=== PATIENT | male | born 1935 | race Two or more races ===

== ENCOUNTER 2019-04-22 19:12 | Inpatient (IN) | payer MEDICARE, OTHER ==
[~2019-04-22] VITALS: Ht 170.2 cm; Wt 75.7 kg
--- NOTE | 2019-04-22 19:12 | NUR ---
ED Nurse Note: Patient alona RA [id number] from home c/o abdominal pain for 5 days. ao3 follows command. nad. vss. family member at bedside
--- NOTE | 2019-04-22 19:25 | NUR ---
ED Nurse Note: iv access established. blood and urine collected; sent down to lab.
[2019-04-22] MEDS ORDERED: Isovue-300 100ml vial INJ PRN (19:30)
[2019-04-22] MEDS ORDERED: Morphine Sulfate 4mg/ml Inj (IV USE ONLY) IVP ONE (19:30)
[2019-04-22 20:08] LABS: HEMATOCRIT 51.5 % (42.0-52.0); HEMOGLOBIN 16.3 G/DL (14.2-18.0); MEAN CORPUSCULAR VOLUME 87 FL (80-99); PLATELET COUNT 247 K/UL (150-450); RED BLOOD COUNT 5.93 M/UL (4.70-6.10); WHITE BLOOD COUNT 12.3 K/UL (4.8-10.8)
[2019-04-22 20:09] LABS: LYMPHOCYTES % (AUTO) 10.2 % (20.0-45.0); MONOCYTES % (AUTO) 4.6 % (1.0-10.0); NEUTROPHILS % (AUTO) 85.1 % (45.0-75.0)
[2019-04-22 20:10] LABS: BASOPHILS % (AUTO) 0.1 % (0.0-2.0); EOSINOPHILS % (AUTO) 0.1 % (0.0-3.0); RED CELL DISTRIBUTION WIDTH 12.6 % (11.6-14.8)
[2019-04-22 20:16] VITALS: BP 100/62
[2019-04-22 20:16] LABS: ANION GAP 13 mmol/L (5-15); APPEARANCE,URINE SLIGHTLY CLOUDY; BILIRUBIN, URINE 1+ (NEGATIVE); BLOOD UREA NITROGEN 82 mg/dL (7-18); CALCIUM 10.1 MG/DL (8.5-10.1); CARBON DIOXIDE 21 MMOL/L (21-32); CHLORIDE 104 MMOL/L (98-107); COLOR,URINE BROWN; CREATININE 4.3 MG/DL (0.55-1.30); GLUCOSE, URINE (UA) NEGATIVE (NEGATIVE); INR 1.2 (0.9-1.1); KETONES,URINE 1+ (NEGATIVE); LEUKOCYTE ESTERASE ,URINE 1+ (NEGATIVE); NITRITE,URINE NEGATIVE (NEGATIVE); PH,URINE 5 (4.5-8.0); POTASSIUM 4.9 MMOL/L (3.5-5.1); PROTEIN,URINE 2+ (NEGATIVE); SODIUM 138 MMOL/L (136-145); UROBILINOGEN,URINE 4 MG/DL (0.0-1.0)
--- NOTE | 2019-04-22 20:17 | Diagnostic Imaging Report ---
EXAM: XR Chest, 1 View CLINICAL HISTORY: Shortness of breath TECHNIQUE: Frontal view of the chest. COMPARISON: No relevant prior studies available. FINDINGS: Lungs: Bibasilar opacities, right greater than left, likely an inflammatory or infectious process. Pleural space: Unremarkable. No pneumothorax. Heart: Unremarkable. No cardiomegaly. Mediastinum: Unremarkable. Bones/joints: Unremarkable. IMPRESSION: Bibasilar opacities, right greater than left, likely an inflammatory or infectious process.
[2019-04-22 20:33] LABS: ALANINE AMINOTRANSFERASE 17 U/L (12-78); ALBUMIN 3.7 G/DL (3.4-5.0); ALBUMIN/GLOBULIN RATIO 0.8 (1.0-2.7); ALKALINE PHOSPHATASE 56 U/L (46-116); ASPARTATE AMINO TRANSFERASE 11 U/L (15-37); BILIRUBIN,TOTAL 1.1 MG/DL (0.2-1.0)
[2019-04-22 20:35] LABS: BILIRUBIN,DIRECT 0.4 MG/DL (0.0-0.3)
--- NOTE | 2019-04-22 20:59 | Diagnostic Imaging Report ---
EXAM: CT Abdomen and Pelvis With Intravenous Contrast CLINICAL HISTORY: PAIN TECHNIQUE: Axial computed tomography images of the abdomen and pelvis with intravenous contrast. CTDI is 0.15, 11.12 mGy and DLP is 615 mGy-cm. One or more of the following dose reduction techniques were used: automated exposure control, adjustment of the mA and/or kV according to patient size, use of iterative reconstruction technique. COMPARISON: No relevant prior studies available. FINDINGS: Lung bases: Reticular and groundglass opacities within the lower lungs which may be inflammatory or infectious. Mediastinum: Moderate-sized hiatal hernia. ABDOMEN: Liver: Sub-centimeters hypodensity within left hepatic lobe, which is nonspecific. Gallbladder and bile ducts: Gallbladder is distended with gallstones. No CT evidence of acute cholecystitis. Pancreas: Unremarkable. Spleen: Unremarkable. Adrenals: Unremarkable. Kidneys and ureters: Unremarkable. Stomach and bowel: Small bowel obstruction with a transition point in a right inguinal hernia. Small amount of fluid within the hernia sac. No pneumatosis or free air. Correlate clinically to exclude incarceration. PELVIS: Appendix: Appendix is unremarkable. Bladder: Unremarkable. Reproductive: Prostate gland is enlarged. ABDOMEN and PELVIS: Intraperitoneal space: See above. Bones/joints: No acute fracture. No dislocation. Soft tissues: See above. Vasculature: Vascular calcifications. No abdominal aortic aneurysm. Lymph nodes: Unremarkable. IMPRESSION: 1. Small bowel obstruction with a transition point in a right inguinal hernia. Small amount of fluid within the hernia sac. No pneumatosis or free air. Correlate clinically to exclude incarceration. 2. Reticular and groundglass opacities within the lower lungs which may be inflammatory or infectious. 3. Gallbladder is distended with gallstones. No CT evidence of acute cholecystitis.
[2019-04-22 21:00] VITALS: BP 80/50
--- NOTE | 2019-04-22 21:00 | NUR ---
ED Nurse Note: lactic reflex drawn; sent down to lab.
--- NOTE | 2019-04-22 21:07 | Emergency Room Report ---
History of Present Illness General Chief Complaint: Abdominal Pain Source: EMS Present Illness HPI 83-year-old male history of hypertension, hyperlipidemia, heart disease presents with lower abdominal pain x3 days, no aggravating or relieving factors no fever no chills, patient endorses a sharp achy pain moderate in severity Allergies: Coded Allergies: No Known Allergies (Unverified , 04/22/19) Patient History Past Medical History: see triage record Reviewed Nursing Documentation: PMH: Agreed; PSxH: Agreed Nursing Documentation-PMH Past Medical History: No History, Except For Hx Hypertension: Yes Review of Systems Constitutional: Denies: chills, fever Eye: Denies: blurred vision, double vision ENT: Denies: throat pain, nasal discharge Respiratory: Denies: cough, shortness of breath Cardiovascular: Denies: chest pain, palpitations Gastrointestinal: Reports: abdominal pain, nausea, vomiting; Denies: diarrhea Genitourinary: Denies: dysuria, pain Musculoskeletal: Denies: back pain, muscle pain Skin: Denies: rash, lesions Neurological: Denies: headache, focal weakness Hematologic/Lymphatic: Denies: easy bleeding, easy bruising All Other Systems: negative except mentioned in HPI Physical Exam Vital Signs Date Time Temp Pulse Resp B/P (MAP) Pulse Ox O2 Delivery O2 Flow Rate FiO2 04/22/19 19:08 97.9 85 18 100/62 (75) 96 Room Air Sp02 EP Interpretation: reviewed, normal General Appearance: well appearing, alert, mild distress Head: normocephalic, atraumatic Eyes: bilateral eye PERRL, bilateral eye EOMI ENT: uvula midline, moist mucus membranes Neck: supple, thyroid normal, supple/symm/no masses Respiratory: lungs clear, no respiratory distress, no retraction, no accessory muscle use Cardiovascular #1: normal peripheral pulses, regular rate, rhythm, no edema, no gallop, no murmur Gastrointestinal: no guarding, no rebound, tenderness - moderate , other - right groin hernia, could not be reduced Musculoskeletal: normal inspection Neurologic: alert, oriented x3 Psychiatric: mood/affect normal Skin: no rash, warm/dry Medical Decision Making Diagnostic Impression: Primary Impression: SBO (small bowel obstruction) Additional Impressions: Right groin hernia ANTONINO (acute kidney injury) Leukocytosis Dehydration Incarcerated hernia ER Course Patient with right groin hernia, concern for obstruction Patient resuscitated Reeval 9:14pm pain well controlled patient in no distress Zosyn given Lactic acid reduced Attempted to reduce hernia, patient could not tolerate Patient refused NG tube Dr. Albarran consulted will see patient in AM Patient admitted to Dr. Gan at 10:02pm Laboratory Tests Test 04/22/19 19:25 04/22/19 21:00 White Blood Count 12.3 K/UL (4.8-10.8) H Red Blood Count 5.93 M/UL (4.70-6.10) Hemoglobin 16.3 G/DL (14.2-18.0) Hematocrit 51.5 % (42.0-52.0) Mean Corpuscular Volume 87 FL (80-99) Mean Corpuscular Hemoglobin 27.5 PG (27.0-31.0) Mean Corpuscular Hemoglobin Concent 31.7 G/DL (32.0-36.0) L Red Cell Distribution Width 12.6 % (11.6-14.8) Platelet Count 247 K/UL (150-450) Mean Platelet Volume 7.9 FL (6.5-10.1) Neutrophils (%) (Auto) 85.1 % (45.0-75.0) H Lymphocytes (%) (Auto) 10.2 % (20.0-45.0) L Monocytes (%) (Auto) 4.6 % (1.0-10.0) Eosinophils (%) (Auto) 0.1 % (0.0-3.0) Basophils (%) (Auto) 0.1 % (0.0-2.0) Prothrombin Time 12.3 SEC (9.30-11.50) H Prothrombin Time INR 1.2 (0.9-1.1) H PTT 28 SEC (23-33) Urine Color Brown Urine Appearance Slightly cloudy Urine pH 5 (4.5-8.0) Urine Specific [place] 1.020 (1.005-1.035) Urine Protein 2+ (NEGATIVE) H Urine Glucose (UA) Negative (NEGATIVE) Urine Ketones 1+ (NEGATIVE) H Urine Blood 3+ (NEGATIVE) H Urine Nitrite Negative (NEGATIVE) Urine Bilirubin 1+ (NEGATIVE) H Urine Ictotest Negative (NEGATIVE) Urine Urobilinogen 4 MG/DL (0.0-1.0) H Urine Leukocyte Esterase 1+ (NEGATIVE) H Urine RBC 10-15 /HPF (0 - 0) H Urine WBC 2-4 /HPF (0 - 0) Urine Squamous Epithelial Cells None /LPF (NONE/OCC) Urine Amorphous Sediment Many /LPF (NONE) H Urine Bacteria Few /HPF (NONE) Sodium Level 138 MMOL/L (136-145) Potassium Level 4.9 MMOL/L (3.5-5.1) Chloride Level 104 MMOL/L (98-107) Carbon Dioxide Level 21 MMOL/L (21-32) Anion Gap 13 mmol/L (5-15) Blood Urea Nitrogen 82 mg/dL (7-18) H Creatinine 4.3 MG/DL (0.55-1.30) H Estimate Glomerular Filtration Rate mL/min (>60) Glucose Level 178 MG/DL (74-106) H Lactic Acid Level 2.30 mmol/L (0.4-2.0) H 1.30 mmol/L (0.66-2.22) Calcium Level 10.1 MG/DL (8.5-10.1) Total Bilirubin 1.1 MG/DL (0.2-1.0) H Direct Bilirubin 0.4 MG/DL (0.0-0.3) H Aspartate Amino Transferase (AST) 11 U/L (15-37) L Alanine Aminotransferase (ALT) 17 U/L (12-78) Alkaline Phosphatase 56 U/L (46-116) Troponin I 0.129 ng/mL (0.000-0.056) Total Protein 8.4 G/DL (6.4-8.2) H Albumin 3.7 G/DL (3.4-5.0) Globulin 4.7 g/dL Albumin/Globulin Ratio 0.8 (1.0-2.7) L Lipase 78 U/L (73-393) EKG Diagnostic Results EKG Time: 19:33 EP Interpretation: NSR, rate 77, QTc 409, no acute ST elevations, normal axis Rate: normal Rhythm: NSR ST Segments: no acute changes Rhythm Strip Diag. Results Rhythm Strip Time: 21:04 EP Interpretation: yes Rate: 76 Rhythm: NSR, no PVC's, no ectopy CT/MRI/US Diagnostic Results CT/MRI/US Diagnostic Results : Impression EXAM: CT Abdomen and Pelvis With Intravenous Contrast CLINICAL HISTORY: PAIN TECHNIQUE: Axial computed tomography images of the abdomen and pelvis with intravenous contrast. CTDI is 0.15, 11.12 mGy and DLP is 615 mGy-cm. One or more of the following dose reduction techniques were used: automated exposure control, adjustment of the mA and/or kV according to patient size, use of iterative reconstruction technique. COMPARISON: No relevant prior studies available. FINDINGS: Lung bases: Reticular and groundglass opacities within the lower lungs which may be inflammatory or infectious. Mediastinum: Moderate-sized hiatal hernia. ABDOMEN: Liver: Sub-centimeters hypodensity within left hepatic lobe, which is nonspecific. Gallbladder and bile ducts: Gallbladder is distended with gallstones. No CT evidence of acute cholecystitis. Pancreas: Unremarkable. Spleen: Unremarkable. Adrenals: Unremarkable. Kidneys and ureters: Unremarkable. Stomach and bowel: Small bowel obstruction with a transition point in a right inguinal hernia. Small amount of fluid within the hernia sac. No pneumatosis or free air. Correlate clinically to exclude incarceration. PELVIS: Appendix: Appendix is unremarkable. Bladder: Unremarkable. Reproductive: Prostate gland is enlarged. ABDOMEN and PELVIS: Intraperitoneal space: See above. Bones/joints: No acute fracture. No dislocation. Soft tissues: See above. Vasculature: Vascular calcifications. No abdominal aortic aneurysm. Lymph nodes: Unremarkable. IMPRESSION: 1. Small bowel obstruction with a transition point in a right inguinal hernia. Small amount of fluid within the hernia sac. No pneumatosis or free air. Correlate clinically to exclude incarceration. 2. Reticular and groundglass opacities within the lower lungs which may be inflammatory or infectious. 3. Gallbladder is distended with gallstones. No CT evidence of acute cholecystitis. Last Vital Signs Date Time Temp Pulse Resp B/P (MAP) Pulse Ox O2 Delivery O2 Flow Rate FiO2 04/22/19 20:16 85 18 Room Air 04/22/19 20:16 97.9 100/62 96 Disposition: ADMITTED INPATIENT Condition: Stable Referrals: NOT CHOSEN IPA/,REFERRING (PCP) Anant Alba MD Apr 22, 2019 21:07
[2019-04-22] MEDS ORDERED: Piperacillin/Tazobactam 3.375 GM in NS 110 ML IVPB ONE (21:15)
--- NOTE | 2019-04-22 21:15 | NUR ---
ED Nurse Note: attempted to insert ngtbe and amezcua. patient refused. explained risk and benefit x3; patient still refused. studio operations engineer in charge and ermd made aware. no new orders at this time.
--- NOTE | 2019-04-22 21:45 | NUR ---
ED Nurse Note: serina at bedside; attempted to insert ngtbe and amezcua. patient refused. explained risk and benefit x3; patient still refused. supercharge repair supervisor and ermd made aware. no new orders at this time.
[2019-04-22 22:00] VITALS: BP 89/55
--- NOTE | 2019-04-22 22:25 | NUR ---
TRANSFER TO FLOOR: Patient transferred to [facility] as ordered, per md eden. Report given to greta kitchen. belongings list completed with receiving rn. endorsed patient refusal for ng tube and amezcua.
--- NOTE | 2019-04-22 22:30 | NUR ---
ED Nurse Note: md paxton at bedside for surgical consult
--- NOTE | 2019-04-22 22:50 | NUR ---
ED Nurse Note: patient cleared for transport. transferred to josh with [facility].
--- NOTE | 2019-04-22 22:59 | Consultation ---
History of Present Illness General Date patient seen: Apr 22, 2019 Reason for Hospitalization: Abdominal Pain Present Illness HPI This is a very pleasant 83-year-old male with history of prior right inguinal hernia repair that presented to the emergency department [facility] complaining of worsening right groin pain/abdominal pain. Patient states that approximately 3 days ago he began to notice a bulge and discomfort. Since the discomfort has worsened and the bulge is not reduced like it usually does. He is experienced nausea and emesis as well as some abdominal bloating. States that he has not had a bowel movement in over 3 days. In emergency department identified to have a leukocytosis, lactic acidosis, elevated troponins, CT scan with incarcerated right inguinal hernia. Surgery called to evaluate. Patient seen, patient evaluate, chart reviewed. Patient present the bedside with his son who helps give history. Patient states that 20 years ago he had a right inguinal hernia repair and was doing well until approximately 2 years ago when he noticed a recurrence. Since he has had a reducible hernia where he notices a bulge that resolves on its own or he reduces himself. Last occurrence was 3 months ago where he required manual reduction by himself. 3 days ago it was not reducible and has worsened since. Patient has a history of cardiac disease with prior stents placed. Patient does not remember the details and states he follows with tractor trailer driver at [facility]. Patient is unaware of the medications he is currently taking. Allergies: Coded Allergies: No Known Allergies (Unverified , 04/22/19) Patient History History Provided By: Patient, Family Member, Medical Record, PMD Healthcare decision maker Resuscitation status Advanced Directive on File Past Medical/Surgical History Past Medical/Surgical History: (1) Leukocytosis (2) Incarcerated hernia (3) Dehydration (4) Right groin hernia (5) SBO (small bowel obstruction) (6) ANTONINO (acute kidney injury) Review of Systems Review of Symptoms General ROS: no weight loss or fever Psychological ROS: no depression or mood changes, no memory loss Ophthalmic ROS: no visual changes or eye irritation ENT ROS: no nasal congestion, hearing loss, dizziness Allergy and Immunology ROS: no allergic symptoms or urticaria Hematological and Lymphatic ROS: no swollen glands, unusual bleeding or bruising Endocrine ROS: no polyuria, polydipsia, weight changes, temperature intolerance Respiratory ROS: no cough, shortness of breath, or wheezing Cardiovascular ROS: no chest pain or dyspnea on exertion Gastrointestinal ROS: denies abdominal pain, no bright red blood in stool. Musculoskeletal ROS: no myalgias or arthralgias Neurological ROS: no TIA or stroke symptoms Dermatological ROS: no new or changing skin lesions, rashes or pruritis Physical Exam Physical Exam General appearance: alert, cooperative, no distress, appears stated age Head: Normocephalic, without obvious abnormality, atraumatic Eyes: conjunctivae/corneas clear. PERRL, EOM's intact. Fundi benign Throat: Lips, mucosa, and tongue normal. Teeth and gums normal Neck: supple, symmetrical, trachea midline, no adenopathy, thyroid: not enlarged, symmetric, no tenderness/mass/nodules, no carotid bruit and no JVD Lungs: clear to auscultation bilaterally Heart: regular rate and rhythm, S1, S2 normal, no murmur, click, rub or gallop Abdomen: soft, non-tender. Bowel sounds normal. No masses, no organomegaly tender incarcerated right inguinal hernia Extremities: extremities normal, atraumatic, no cyanosis or edema Pulses: 2+ and symmetric Skin: Skin color, texture, turgor normal. No rashes or lesions Neurologic: Grossly normal Last 24 Hour Vital Signs Date Time Temp Pulse Resp B/P (MAP) Pulse Ox O2 Delivery O2 Flow Rate FiO2 04/22/19 20:16 85 18 Room Air 04/22/19 20:16 97.9 95 18 100/62 96 Room Air 04/22/19 20:14 97.9 04/22/19 19:08 97.9 85 18 100/62 (75) 96 Room Air Laboratory Tests Test 04/22/19 19:25 04/22/19 21:00 White Blood Count 12.3 K/UL (4.8-10.8) H Red Blood Count 5.93 M/UL (4.70-6.10) Hemoglobin 16.3 G/DL (14.2-18.0) Hematocrit 51.5 % (42.0-52.0) Mean Corpuscular Volume 87 FL (80-99) Mean Corpuscular Hemoglobin 27.5 PG (27.0-31.0) Mean Corpuscular Hemoglobin Concent 31.7 G/DL (32.0-36.0) L Red Cell Distribution Width 12.6 % (11.6-14.8) Platelet Count 247 K/UL (150-450) Mean Platelet Volume 7.9 FL (6.5-10.1) Neutrophils (%) (Auto) 85.1 % (45.0-75.0) H Lymphocytes (%) (Auto) 10.2 % (20.0-45.0) L Monocytes (%) (Auto) 4.6 % (1.0-10.0) Eosinophils (%) (Auto) 0.1 % (0.0-3.0) Basophils (%) (Auto) 0.1 % (0.0-2.0) Prothrombin Time 12.3 SEC (9.30-11.50) H Prothromb Time International Ratio 1.2 (0.9-1.1) H Activated Partial Thromboplast Time 28 SEC (23-33) Urine Color Brown Urine Appearance Slightly cloudy Urine pH 5 (4.5-8.0) Urine Specific [place] 1.020 (1.005-1.035) Urine Protein 2+ (NEGATIVE) H Urine Glucose (UA) Negative (NEGATIVE) Urine Ketones 1+ (NEGATIVE) H Urine Blood 3+ (NEGATIVE) H Urine Nitrite Negative (NEGATIVE) Urine Bilirubin 1+ (NEGATIVE) H Urine Ictotest Negative (NEGATIVE) Urine Urobilinogen 4 MG/DL (0.0-1.0) H Urine Leukocyte Esterase 1+ (NEGATIVE) H Urine RBC 10-15 /HPF (0 - 0) H Urine WBC 2-4 /HPF (0 - 0) Urine Squamous Epithelial Cells None /LPF (NONE/OCC) Urine Amorphous Sediment Many /LPF (NONE) H Urine Bacteria Few /HPF (NONE) Sodium Level 138 MMOL/L (136-145) Potassium Level 4.9 MMOL/L (3.5-5.1) Chloride Level 104 MMOL/L (98-107) Carbon Dioxide Level 21 MMOL/L (21-32) Anion Gap 13 mmol/L (5-15) Blood Urea Nitrogen 82 mg/dL (7-18) H Creatinine 4.3 MG/DL (0.55-1.30) H Estimat Glomerular Filtration Rate mL/min (>60) Glucose Level 178 MG/DL (74-106) H Lactic Acid Level 2.30 mmol/L (0.4-2.0) H 1.30 mmol/L (0.66-2.22) Calcium Level 10.1 MG/DL (8.5-10.1) Total Bilirubin 1.1 MG/DL (0.2-1.0) H Direct Bilirubin 0.4 MG/DL (0.0-0.3) H Aspartate Amino Transf (AST/SGOT) 11 U/L (15-37) L Alanine Aminotransferase (ALT/SGPT) 17 U/L (12-78) Alkaline Phosphatase 56 U/L (46-116) Troponin I 0.129 ng/mL (0.000-0.056) Total Protein 8.4 G/DL (6.4-8.2) H Albumin 3.7 G/DL (3.4-5.0) Globulin 4.7 g/dL Albumin/Globulin Ratio 0.8 (1.0-2.7) L Lipase 78 U/L (73-393) Height (Feet): 5 Height (Inches): 7.00 Weight (Pounds): 150 Medications Current Medications Medications (Trade) Dose Ordered Sig/Fay Route PRN Reason Start Time Stop Time Status Last Admin Dose Admin Iopamidol (Isovue-300 100ml) 100 ml NOW PRN INJ Radiology Procedure 04/22/19 19:30 Assessment/Plan Problem List: (1) Incarcerated hernia Assessment & Plan: This is a 83-year-old male with incarcerated recurrent right inguinal hernia. Associated small bowel obstruction. Nausea and emesis. Leukocytosis. Lactic acidosis resolved with fluid resuscitation. Elevated troponins. At bedside I was able with patient's consent to reduce his inguinal hernia. Once reduced patient states he felt instantaneously better. Given course of 3 days and improvement with resuscitation and reduction possibility of possible bowel ischemia and non-viability but unlikely I had a long discussion with the patient and his son at the bedside regarding course and plan of care. Given his cardiac history and medical condition unless emergency will hold on surgical intervention until seen by tractor trailer driver for work-up and evaluation. If unfortunately the bowel is nonviable and his exam worsens or clinical condition worsens we will proceed to operating room for diagnostic exploration. Do recommend hernia repair but need to stratify cardiac risk prior if able to unless nonviable bowel and requiring emergency surgery. All the possibilities were discussed with the patient and his family member at bedside. All risk benefits alternatives were discussed in detail. All interventions including urgent operative mention discussed. After doing so decision was made to continue with above care plan. N.p.o., okay for ice chips IV fluids A.m. labs Cardiology evaluation We will follow with serial abdominal exams Thank you for allowing me to participate in patient's care ICD Codes: K46.0 - Unspecified abdominal hernia with obstruction, without gangrene SNOMED: 82697911, 335830651 (2) Leukocytosis ICD Codes: D72.829 - Elevated white blood cell count, unspecified SNOMED: 999875132, 717233471 (3) Dehydration ICD Codes: E86.0 - Dehydration SNOMED: 81538954, 0813944 (4) Right groin hernia ICD Codes: K40.90 - Unilateral inguinal hernia, without obstruction or gangrene , not specified as recurrent SNOMED: 357756331 (5) SBO (small bowel obstruction) ICD Codes: K56.609 - Unspecified intestinal obstruction, unspecified as to partial versus complete obstruction SNOMED: 059706814 (6) ANTONINO (acute kidney injury) ICD Codes: N17.9 - Acute kidney failure, unspecified SNOMED: 86575614, 1714993 Alex Hanna Apr 22, 2019 22:58
[2019-04-22] MEDS ORDERED: Mylanta II UD 30ml ORAL PRN (23:00)
[2019-04-22] MEDS ORDERED: LORazepam Inj 2mg/ml 1ml IV PRN (23:00)
[2019-04-22] MEDS ORDERED: Milk of Magnesia 30ml Ud ORAL PRN (23:00)
[2019-04-22] MEDS ORDERED: Morphine Sulfate 2mg/ml Inj(IV/IM USE ONLY) IVP PRN (23:00)
[2019-04-22] MEDS ORDERED: Nitroglycerin Subl 0.4mg tab SL PRN (23:00)
--- NOTE | 2019-04-22 23:15 | NUR ---
NURSE NOTES: Received pt from ED via gurney. Pt is awake, AOx4. In no acute distress. IV line intact and patent. Placed on cardiac care unit nurse showing SR. VS stable. Oriented pt to room and unit. No c/o pain at this time. Bed in lowest position, call light within reach. Son is at bedside. Will contact MD for admission orders.
[2019-04-22 23:30] VITALS: BP 129/80
[2019-04-22] MEDS ORDERED: HYDROcodone/Acetamin 5/325 tab ORAL PRN (23:45)
[2019-04-22] MEDS ORDERED: TRIUMEQ 600-501 EACH PO (23:50)
[2019-04-22] MEDS ORDERED: LISINOPRIL5 MG ORAL (23:50)
[2019-04-22] MEDS ORDERED: ZETIA10 MG ORAL (23:50)
[2019-04-22] MEDS ORDERED: CLOPIDOGREL75 MG ORAL (23:50)
[2019-04-22] MEDS ORDERED: CARVEDILOL6.25 MG ORAL (23:50)
[2019-04-22] MEDS ORDERED: ATORVASTATIN CA40 MG ORAL (23:50)
--- NOTE | 2019-04-23 00:16 | NUR ---
Contacts: Thong Peterson ([facility])
[2019-04-23] MEDS: Azithromycin 500 MG in D5W 275 ML IV SCH ×2 (00:24→23:58)
[2019-04-23 04:00] VITALS: BP 112/66
[2019-04-23 04:34] LABS: BASOPHILS % (AUTO) 0.3 % (0.0-2.0); EOSINOPHILS % (AUTO) 0.2 % (0.0-3.0); HEMATOCRIT 42.2 % (42.0-52.0); HEMOGLOBIN 13.4 G/DL (14.2-18.0); LYMPHOCYTES % (AUTO) 15.2 % (20.0-45.0); MEAN CORPUSCULAR VOLUME 89 FL (80-99); MONOCYTES % (AUTO) 5.5 % (1.0-10.0); NEUTROPHILS % (AUTO) 78.9 % (45.0-75.0); PLATELET COUNT 192 K/UL (150-450); RED BLOOD COUNT 4.76 M/UL (4.70-6.10); RED CELL DISTRIBUTION WIDTH 13.5 % (11.6-14.8); WHITE BLOOD COUNT 8.7 K/UL (4.8-10.8)
[2019-04-23 04:42] LABS: INR 1.1 (0.9-1.1)
[2019-04-23 05:01] LABS: ALANINE AMINOTRANSFERASE 12 U/L (12-78); ALBUMIN 2.7 G/DL (3.4-5.0); ALBUMIN/GLOBULIN RATIO 0.8 (1.0-2.7); ALKALINE PHOSPHATASE 39 U/L (46-116); ANION GAP 9 mmol/L (5-15); ASPARTATE AMINO TRANSFERASE 12 U/L (15-37); BILIRUBIN,TOTAL 0.5 MG/DL (0.2-1.0); BLOOD UREA NITROGEN 74 mg/dL (7-18); CALCIUM 8.3 MG/DL (8.5-10.1); CARBON DIOXIDE 21 MMOL/L (21-32); CHLORIDE 111 MMOL/L (98-107); CHOLESTEROL 88 MG/DL (< 200); CREATININE 3.3 MG/DL (0.55-1.30); HDL CHOLESTEROL 37 MG/DL (40-60); POTASSIUM 4.7 MMOL/L (3.5-5.1); SODIUM 141 MMOL/L (136-145); TRIGLYCERIDES 46 MG/DL (30-150)
[2019-04-23] MEDS ORDERED: Piperacillin/Tazobactam 2.25 GM in D5W 55 ML IVPB SCH (06:00)
[2019-04-23] MEDS: NovoLOG Insulin Flexpen SUBQ SCH ×5 (06:07→23:58)
--- NOTE | 2019-04-23 07:26 | NUR ---
HAND-OFF: Report given to VY Grant.
--- NOTE | 2019-04-23 07:38 | NUR ---
NURSE NOTES: received pt from Willy Bender RN, pt is a sleep but easily awaken with verbal commend. pt is on RA and no respiratory distress, no complain of ABD pain. pt is NPO, sinus rhythm on the monitor noted, IV Left forearm intact, dry, with IVF D5NS @ 75ml/hr. skin warm and dry, siderails x 2, call light within reach. HOB elevated 30 degree, bed lowest position and locked. will continue to monitor the pt.
[2019-04-23 08:00] VITALS: BP 124/68
[2019-04-23] MEDS: Aspirin Baby 81mg ORAL SCH (09:00)
[2019-04-23] MEDS: Heparin 5000 units/ml inj SUBQ SCH ×2 (09:00→21:10)
[2019-04-23] MEDS: Zosyn 3.375gm in NS 110ml IVPB SCH ×2 (10:17→21:09)
[2019-04-23 12:00] VITALS: BP 137/96
--- NOTE | 2019-04-23 12:00 | NUR ---
NURSE NOTES: Dr. Leal ordered clear liquid diet, no longer NPO. pt ate with appetite.
--- NOTE | 2019-04-23 12:12 | Surgery Progress Note ---
Surgery Progress Note Subjective Symptoms: improved, voiding well, passing flatus, pain decreased Additional Comments passing flatus pain resolving no abd complaints no n/v/f/c labs improved Objective Last 24 Hour Vital Signs Date Time Temp Pulse Resp B/P (MAP) Pulse Ox O2 Delivery O2 Flow Rate FiO2 04/23/19 08:00 Room Air 04/23/19 08:00 98.0 68 20 124/68 (86) 96 04/23/19 08:00 62 04/23/19 04:00 76 04/23/19 04:00 Room Air 04/23/19 04:00 97.2 76 20 112/66 (81) 96 04/23/19 00:00 Room Air 04/22/19 23:30 85 04/22/19 23:30 98.0 85 20 129/80 (96) 100 04/22/19 22:50 97.9 68 16 89/55 99 Room Air 04/22/19 22:00 97.9 68 16 89/55 99 Room Air 04/22/19 21:00 97.9 75 18 80/50 99 Room Air 04/22/19 20:16 85 18 Room Air 04/22/19 20:16 97.9 95 18 100/62 96 Room Air 04/22/19 20:14 97.9 04/22/19 19:08 97.9 85 18 100/62 (75) 96 Room Air I&O Intake and Output 04/22/19 04/23/19 19:00 07:00 Intake Total 750 ml Balance 750 ml Intake IV Total 750 ml # Voids 3 Cardiovascular: RSR Respiratory: clear Abdomen: soft, flat, non-tender, present bowel sounds, non-distended Extremities: no cyanosis Laboratory Tests Test 04/22/19 19:25 04/22/19 21:00 04/23/19 03:36 White Blood Count 12.3 K/UL (4.8-10.8) H 8.7 K/UL (4.8-10.8) Red Blood Count 5.93 M/UL (4.70-6.10) 4.76 M/UL (4.70-6.10) Hemoglobin 16.3 G/DL (14.2-18.0) 13.4 G/DL (14.2-18.0) L Hematocrit 51.5 % (42.0-52.0) 42.2 % (42.0-52.0) Mean Corpuscular Volume 87 FL (80-99) 89 FL (80-99) Mean Corpuscular Hemoglobin 27.5 PG (27.0-31.0) 28.2 PG (27.0-31.0) Mean Corpuscular Hemoglobin Concent 31.7 G/DL (32.0-36.0) L 31.7 G/DL (32.0-36.0) L Red Cell Distribution Width 12.6 % (11.6-14.8) 13.5 % (11.6-14.8) Platelet Count 247 K/UL (150-450) 192 K/UL (150-450) Mean Platelet Volume 7.9 FL (6.5-10.1) 6.9 FL (6.5-10.1) Neutrophils (%) (Auto) 85.1 % (45.0-75.0) H 78.9 % (45.0-75.0) H Lymphocytes (%) (Auto) 10.2 % (20.0-45.0) L 15.2 % (20.0-45.0) L Monocytes (%) (Auto) 4.6 % (1.0-10.0) 5.5 % (1.0-10.0) Eosinophils (%) (Auto) 0.1 % (0.0-3.0) 0.2 % (0.0-3.0) Basophils (%) (Auto) 0.1 % (0.0-2.0) 0.3 % (0.0-2.0) Prothrombin Time 12.3 SEC (9.30-11.50) H 12.0 SEC (9.30-11.50) H Prothromb Time International Ratio 1.2 (0.9-1.1) H 1.1 (0.9-1.1) Activated Partial Thromboplast Time 28 SEC (23-33) 28 SEC (23-33) Urine Color Brown Urine Appearance Slightly cloudy Urine pH 5 (4.5-8.0) Urine Specific [place] 1.020 (1.005-1.035) Urine Protein 2+ (NEGATIVE) H Urine Glucose (UA) Negative (NEGATIVE) Urine Ketones 1+ (NEGATIVE) H Urine Blood 3+ (NEGATIVE) H Urine Nitrite Negative (NEGATIVE) Urine Bilirubin 1+ (NEGATIVE) H Urine Ictotest Negative (NEGATIVE) Urine Urobilinogen 4 MG/DL (0.0-1.0) H Urine Leukocyte Esterase 1+ (NEGATIVE) H Urine RBC 10-15 /HPF (0 - 0) H Urine WBC 2-4 /HPF (0 - 0) Urine Squamous Epithelial Cells None /LPF (NONE/OCC) Urine Amorphous Sediment Many /LPF (NONE) H Urine Bacteria Few /HPF (NONE) Sodium Level 138 MMOL/L (136-145) 141 MMOL/L (136-145) Potassium Level 4.9 MMOL/L (3.5-5.1) 4.7 MMOL/L (3.5-5.1) Chloride Level 104 MMOL/L (98-107) 111 MMOL/L (98-107) H Carbon Dioxide Level 21 MMOL/L (21-32) 21 MMOL/L (21-32) Anion Gap 13 mmol/L (5-15) 9 mmol/L (5-15) Blood Urea Nitrogen 82 mg/dL (7-18) H 74 mg/dL (7-18) H Creatinine 4.3 MG/DL (0.55-1.30) H 3.3 MG/DL (0.55-1.30) H Estimat Glomerular Filtration Rate mL/min (>60) mL/min (>60) Glucose Level 178 MG/DL (74-106) H 161 MG/DL (74-106) H Lactic Acid Level 2.30 mmol/L (0.4-2.0) H 1.30 mmol/L (0.66-2.22) Calcium Level 10.1 MG/DL (8.5-10.1) 8.3 MG/DL (8.5-10.1) L Total Bilirubin 1.1 MG/DL (0.2-1.0) H 0.5 MG/DL (0.2-1.0) Direct Bilirubin 0.4 MG/DL (0.0-0.3) H Aspartate Amino Transf (AST/SGOT) 11 U/L (15-37) L 12 U/L (15-37) L Alanine Aminotransferase (ALT/SGPT) 17 U/L (12-78) 12 U/L (12-78) Alkaline Phosphatase 56 U/L (46-116) 39 U/L (46-116) L Troponin I 0.129 ng/mL (0.000-0.056) 0.189 ng/mL (0.000-0.056) Total Protein 8.4 G/DL (6.4-8.2) H 6.0 G/DL (6.4-8.2) L Albumin 3.7 G/DL (3.4-5.0) 2.7 G/DL (3.4-5.0) L Globulin 4.7 g/dL 3.3 g/dL Albumin/Globulin Ratio 0.8 (1.0-2.7) L 0.8 (1.0-2.7) L Lipase 78 U/L (73-393) 70 U/L (73-393) L Hemoglobin A1c 6.0 % (4.3-6.0) Pro-B-Type Natriuretic Peptide 527 pg/mL (0-125) H Triglycerides Level 46 MG/DL (30-150) Cholesterol Level 88 MG/DL (< 200) LDL Cholesterol 44 mg/dL (<100) HDL Cholesterol 37 MG/DL (40-60) L Cholesterol/HDL Ratio 2.4 (3.3-4.4) L Thyroid Stimulating Hormone (TSH) 0.071 uiU/mL (0.358-3.740) Plan Problems: (1) Incarcerated hernia Assessment & Plan: This is a 83-year-old male with incarcerated recurrent right inguinal hernia. Associated small bowel obstruction. Nausea and emesis. Leukocytosis. Lactic acidosis resolved with fluid resuscitation. Elevated troponins. At bedside I was able with patient's consent to reduce his inguinal hernia. Once reduced patient states he felt instantaneously better. Given course of 3 days and improvement with resuscitation and reduction possibility of possible bowel ischemia and non-viability but unlikely I had a long discussion with the patient and his son at the bedside regarding course and plan of care. Given his cardiac history and medical condition unless emergency will hold on surgical intervention until seen by suction operator for work-up and evaluation. If unfortunately the bowel is nonviable and his exam worsens or clinical condition worsens we will proceed to operating room for diagnostic exploration. Do recommend hernia repair but need to stratify cardiac risk prior if able to unless nonviable bowel and requiring emergency surgery. All the possibilities were discussed with the patient and his family member at bedside. All risk benefits alternatives were discussed in detail. All interventions including urgent operative mention discussed. After doing so decision was made to continue with above care plan. clear liquids IV fluids A.m. labs Cardiology evaluation We will follow with serial abdominal exams Thank you for allowing me to participate in patient's care (2) Leukocytosis (3) Dehydration (4) Right groin hernia (5) SBO (small bowel obstruction) (6) ANTONINO (acute kidney injury) Alex Hanna Apr 23, 2019 12:12
[2019-04-23] MEDS ORDERED: Morphine Sulfate 2mg/ml Inj(IV/IM USE ONLY) IVP PRN (12:45)
[2019-04-23] MEDS: D5NS 1,000 ML IV SCH ×2 (13:00)
--- NOTE | 2019-04-23 15:08 | History & Physical ---
History and Physical History & Physicial History and Physical HPI Patient is an 83-year-old man with history of hypertension, hyperlipidemia, heart disease who presents with lower abdominal pain, nausea for 3 days, no aggravating or relieving factors. Denies fever, chills. Allergies: No Known Allergies Past Medical History: Hypertension, Hyperlipidemia, Heart disease All Other Systems: negative except mentioned in HPI Physical Exam Vital Signs Noted Date Time Temp Pulse Resp B/P (MAP) Pulse Ox O2 Delivery O2 Flow Rate FiO2 04/22/19 19:08 97.9 85 18 100/62 (75) 96 Room Air General Appearance: well appearing, alert, mild distress Head: normocephalic, atraumatic Eyes: bilateral eye PERRL, bilateral eye EOMI ENT: uvula midline, moist mucus membranes Neck: supple, thyroid normal, supple/symm/no masses Respiratory: lungs clear, no respiratory distress, no retraction, no accessory muscle use Cardiovascular: normal peripheral pulses, regular rate, rhythm, HS1/HS2 normal , no murmur Gastrointestinal: no guarding, no rebound, tenderness - moderate in right groin hernia, could not be reduced Musculoskeletal: normal inspection Neurologic: alert, oriented x3, no focal signs Skin: no rash, warm/dry Impression: Small bowel obstruction Right groin hernia, Incarcerated Possible pneumonia Acute kidney injury Leukocytosis Dehydration Elevated Troponin Plan Surgical Consultation IVF AntibioticsZosyn given Lactic acid reduced Trend Labs NEWS AGENT medications PPX Cardiology Consultation O2 PRN Laboratory Tests noted Test 04/22/19 19:25 04/22/19 21:00 White Blood Count 12.3 K/UL (4.8-10.8) H Red Blood Count 5.93 M/UL (4.70-6.10) Hemoglobin 16.3 G/DL (14.2-18.0) Hematocrit 51.5 % (42.0-52.0) Mean Corpuscular Volume 87 FL (80-99) Mean Corpuscular Hemoglobin 27.5 PG (27.0-31.0) Mean Corpuscular Hemoglobin Concent 31.7 G/DL (32.0-36.0) L Red Cell Distribution Width 12.6 % (11.6-14.8) Platelet Count 247 K/UL (150-450) Mean Platelet Volume 7.9 FL (6.5-10.1) Neutrophils (%) (Auto) 85.1 % (45.0-75.0) H Lymphocytes (%) (Auto) 10.2 % (20.0-45.0) L Monocytes (%) (Auto) 4.6 % (1.0-10.0) Eosinophils (%) (Auto) 0.1 % (0.0-3.0) Basophils (%) (Auto) 0.1 % (0.0-2.0) Prothrombin Time 12.3 SEC (9.30-11.50) H Prothrombin Time INR 1.2 (0.9-1.1) H PTT 28 SEC (23-33) Urine Color Brown Urine Appearance Slightly cloudy Urine pH 5 (4.5-8.0) Urine Specific [place] 1.020 (1.005-1.035) Urine Protein 2+ (NEGATIVE) H Urine Glucose (UA) Negative (NEGATIVE) Urine Ketones 1+ (NEGATIVE) H Urine Blood 3+ (NEGATIVE) H Urine Nitrite Negative (NEGATIVE) Urine Bilirubin 1+ (NEGATIVE) H Urine Ictotest Negative (NEGATIVE) Urine Urobilinogen 4 MG/DL (0.0-1.0) H Urine Leukocyte Esterase 1+ (NEGATIVE) H Urine RBC 10-15 /HPF (0 - 0) H Urine WBC 2-4 /HPF (0 - 0) Urine Squamous Epithelial Cells None /LPF (NONE/OCC) Urine Amorphous Sediment Many /LPF (NONE) H Urine Bacteria Few /HPF (NONE) Sodium Level 138 MMOL/L (136-145) Potassium Level 4.9 MMOL/L (3.5-5.1) Chloride Level 104 MMOL/L (98-107) Carbon Dioxide Level 21 MMOL/L (21-32) Anion Gap 13 mmol/L (5-15) Blood Urea Nitrogen 82 mg/dL (7-18) H Creatinine 4.3 MG/DL (0.55-1.30) H Estimate Glomerular Filtration Rate mL/min (>60) Glucose Level 178 MG/DL (74-106) H Lactic Acid Level 2.30 mmol/L (0.4-2.0) H 1.30 mmol/L (0.66-2.22) Calcium Level 10.1 MG/DL (8.5-10.1) Total Bilirubin 1.1 MG/DL (0.2-1.0) H Direct Bilirubin 0.4 MG/DL (0.0-0.3) H Aspartate Amino Transferase (AST) 11 U/L (15-37) L Alanine Aminotransferase (ALT) 17 U/L (12-78) Alkaline Phosphatase 56 U/L (46-116) Troponin I 0.129 ng/mL (0.000-0.056) Total Protein 8.4 G/DL (6.4-8.2) H Albumin 3.7 G/DL (3.4-5.0) Globulin 4.7 g/dL Albumin/Globulin Ratio 0.8 (1.0-2.7) L Lipase 78 U/L (73-393) EKG: NSR, rate 77, QTc 409, no acute ST elevations, normal axis CT Abdomen 1. Small bowel obstruction with a transition point in a right inguinal hernia. Small amount of fluid within the hernia sac. No pneumatosis or free air. Correlate clinically to exclude incarceration. 2. Reticular and groundglass opacities within the lower lungs which may be inflammatory or infectious. 3. Gallbladder is distended with gallstones. No CT evidence of acute cholecystitis. Steffen Shore MD Apr 23, 2019 15:08
[2019-04-23 16:00] VITALS: BP 129/96
--- NOTE | 2019-04-23 16:48 | NUR ---
CASE MANAGEMENT: REVIEW 83Y/M BIBA FROM HOME CC: ABD PAIN X5 DAYS SI: ANTONINO . ELEVATED TROP . SOB . DEHYDRATION T 97.9 HR 85 RR 18 BP 100/62 ST 96% ROOM AIR WBC 12.3 BUN 74 CR 3.[address] ABDOMEN & PELVIS - SOB IS: NA IVF BOLUS X1 MORPHINE IV X1 ZOFRAN IV X1 ZOSYN IV X1 PATIENT ADMITTED TO STEP DOWN UNIT 04/23/2019 DCP: PATIENT IS FROM HOME
--- NOTE | 2019-04-23 17:00 | NUR ---
NURSE NOTES: Pt resting quietly in bed,stable,during the shift,no c/o abd pain presented.
--- NOTE | 2019-04-23 19:48 | NUR ---
HAND-OFF: Report given to Carlo Grey RN.
[2019-04-23 20:00] VITALS: BP 105/59
--- NOTE | 2019-04-23 20:00 | NUR ---
NURSE NOTES: Endorsement received from VY Matos. Patient awake, oreinted x 4. On room air. No complaints of pain at this time. With IV g 18 at left AC, patent and intact. On D5NS at 75 ml/hr. Head of bed elevated. Call light within visible reach, reminded patient to use call light for assistance. Bed alarm on, locked and in low position
[2019-04-24] VITALS: BP 132/77
--- NOTE | 2019-04-24 01:30 | Consultation ---
DATE OF CONSULTATION: 04/23/2019 CARDIOLOGY CONSULTATION CONSULTING PHYSICIAN: Steffen Vazquez M.D. REASON FOR CONSULTATION: Elevated troponin level. HISTORY OF PRESENT ILLNESS: This 83-year-old male who resides in an assisted living facility, developed abdominal pain for the past two days and was noted to have an incarcerated right inguinal hernia. The patient was seen in the emergency room by Dr. Hanna and underwent nonsurgical reduction and symptoms improved subsequently. Concern has been raised over his elevated troponin level and abnormal laboratory studies. The patient is unable to give much reliable history. However, his son is at the bedside and has provided the majority of this report. PAST MEDICAL HISTORY: Includes coronary artery disease with history of coronary stent, hypertension, and hyperlipidemia. ALLERGIES: None. MEDICATIONS: Reviewed and reconciled. FAMILY HISTORY: Noncontributory. SOCIAL HISTORY: Nonsmoker. No alcohol use at this time. REVIEW OF SYSTEMS: Otherwise, cannot be reliably obtained. However, according to the patient's son, he has not had any swelling of the legs or complaints of shortness of breath. No history of irregular heartbeats. No known history of diabetes or thyroid impairment. He does have some described dementia. PHYSICAL EXAMINATION: VITAL SIGNS: Blood pressure earlier 137/96, heart rate 72, respiratory rate 21, afebrile, and oxygen saturation on room air 95%. HEENT: Conjunctivae are pink. Oropharynx clear. NECK: Supple. No bruits. Jugular venous pressure normal. LUNGS: Clear. CARDIAC: Regular rhythm and rate. Normal S1 and S2. There is a fourth heart sound. ABDOMEN: Soft. Hernia site is minimally tender with no guarding. EXTREMITIES: No edema. LABORATORY AND DIAGNOSTIC DATA: Sodium 141, potassium 4.7, bicarbonate 21, BUN , and creatinine 3.3. Troponin 0.189. Pro-natriuretic peptide 527. Albumin 2.7. LDL cholesterol 44. Lactic acid #1 is 2.3 and #2 is 1.3. EKG revealed sinus rhythm, 76 beats per minute, and nonspecific ST change. IMPRESSION: 1. Incarcerated hernia, status post reduction. 2. Lactic acidosis, resolved. 3. Acute myocardial ischemia and possible non-ST elevation infarction. 4. Dehydration. 5. Hypovolemia. 6. Partial small bowel obstruction secondary to hernia. 7. Acute on chronic kidney injury. 8. Hypertensive heart disease. 9. History of hyperlipidemia with low cholesterol levels, on statin drugs. 10. Coronary artery disease with history of coronary stent. 11. Elevated natriuretic peptide essay suggesting acute diastolic congestive heart failure component. PLAN: 1. Serial troponins. 2. Echocardiogram. 3. Optimize antianginal and anti-failure regimen. 4. Hold anti-platelet. 5. Continue low-dose aspirin. Steffen Vazquez M.D. DR: IVANIA JOB#: [id number] CC:
--- NOTE | 2019-04-24 01:45 | NUR ---
NURSE NOTES: Patient reported pain at the IV site. Assessed the IV, no redness, no signs of infiltration, with backflow of blood. Patient started to get agitated, verbalized that he feels like a prisoner with the IV. Calmly explained to him that he needs the IV for his fluids and medications such as antibiotics. He verbalized that if the nurse will not remove it, then he will cut it out himself. Called charge nurse Carlo, and he explained the risks and benefits of the IV. Patient getting increasingly agitated at this time. IV removed. Will inform the doctor. Patient also refused to have his linens changed. Will continue to monitor
[2019-04-24] MEDS: D5NS 1,000 ML IV SCH ×2 (02:00→15:45)
--- NOTE | 2019-04-24 02:01 | NUR ---
NURSE NOTES: Patient calm at this time. Apologized for shouting, but still refusing to be inserted with another IV. Patient's rights respected.
--- NOTE | 2019-04-24 03:00 | NUR ---
NURSE NOTES: Patient asleep at this time.
--- NOTE | 2019-04-24 04:00 | NUR ---
NURSE NOTES: [place] the bed alarm and went to the patient's room. Found patient sitting on the bed, holding his penis. Asked where he is going, verbalized he is going to the bathroom. Another male nurse offered urinal, refused. Patient furious at this time. Charge nurse went in the room then called security as patient is increasingly combative and becoming violent. Unable to redirect and reorient. Reminded him that he is in the hospital and it's currently 4 in the morning. Patient spat at the male nurse, holding his fist up threatening the 3 nurses and 1 security in the room. He told staff to get out of his house and he will call the police, and that he will go to his neighbor and call the police from there. Assisted patient in the bathroom where he passed urine. Called patient's son, no answer and left a message. Placed patient on the bed by 3 staff, applied soft wrist restraints. Will contiue to monitor. Addendum: 04/24/19 at 0528 by SONIA MARIANO RN Addendum: Unable to give PRN Ativan due to patient requested to remove IV and refused to be inserted with a new one
--- NOTE | 2019-04-24 05:38 | NUR ---
NURSE NOTES: Went back in the patient's room, asked the patient if his vital signs can be taken since was combative earlier. Patient still upset, refused. Explained risks and benefits x3, still refused
[2019-04-24] MEDS: NovoLOG Insulin Flexpen SUBQ SCH ×3 (06:00→18:00)
--- NOTE | 2019-04-24 06:04 | NUR ---
NURSE NOTES: Patient refused blood sugar check and insulin at this time. Will give more time to calm down.
--- NOTE | 2019-04-24 06:24 | NUR ---
NURSE NOTES: Multimedia Services Coordinator at bedside for morning lab draw. Patient refused x3 despite the explanation of risks and benefits. Aggressive at staff and screaming. Called the patient's son, left a message.
--- NOTE | 2019-04-24 06:40 | NUR ---
NURSE NOTES: Called Dr. Gan on his emergency number, left a message regarding patient 's refusal for care and increasing confusion and combativeness. Awaiting for return call.
--- NOTE | 2019-04-24 07:24 | NUR ---
HAND-OFF: o2 sat 93%-94% on room air. Patient still restless and confused. Report given to VY Urias .
--- NOTE | 2019-04-24 07:25 | NUR ---
NURSE NOTES: Received bedside report from Carmelina MCCLELLAN. Pt. in bed, awake, restless. Pt. screaming without apparent reason. Tried to re-orient but at present it's ineffective. V/S WNL. Soft bilateral wrist restrain in placed for safety reason. Bed in low position, locked. Call light within reach. Will cont. to monitor.
--- NOTE | 2019-04-24 07:49 | NUR ---
NURSE NOTES: Pt. start to calmed down and removed restrain. Also moved his room in front of nurse station, and it is very effective.
[2019-04-24 08:00] VITALS: BP 149/93
--- NOTE | 2019-04-24 08:30 | NUR ---
NURSE NOTES: Tried to start IV line pt. refused. Explained risk and benefits but pt. still refused.
[2019-04-24] MEDS: Zosyn 3.375gm in NS 110ml IVPB SCH (09:00)
[2019-04-24] MEDS: Heparin 5000 units/ml inj SUBQ SCH ×2 (09:00→21:00)
[2019-04-24] MEDS: Metoprolol 25mg tab ORAL SCH ×2 (09:46→21:38)
[2019-04-24] MEDS: Aspirin Baby 81mg ORAL SCH (09:46)
--- NOTE | 2019-04-24 11:00 | NUR ---
NURSE NOTES: CN tried to re-start IV line pt. still cont. to refused.
[2019-04-24 12:00] VITALS: BP 124/71
--- NOTE | 2019-04-24 13:10 | Cardiology Report ---
APPROVED REPORT EXAM: Two-dimensional and M-mode echocardiogram with Doppler and color Doppler. INDICATION Coronary artery disease M-Mode DIMENSIONS IVSd1.1 (0.7-1.1cm)Left Atrium (MM)3.8 (1.6-4.0cm) LVDd4.7 (3.5-5.6cm)Aortic Root2.8 (2.0-3.7cm) PWd1.2 (0.7-1.1cm)Aortic Cusp Exc.1.5 (1.5-2.0cm) LVDs3.3 (2.5-4.0cm) PWs1.7 cm Normal left ventricular chamber size, systolic function and wall motion except possible hypokinesis of inferolater wall Left ventricular ejection fraction estimated to be 55-60 %. Borderline left ventricular hypertrophy. No evidence of pericardial effusion. All other cardiac chamber sizes are within normal limits. Mild focal aortic valve sclerosis with adequate cusp excursion. Thickened mitral valve leaflets with normal excursion. Mild mitral annulus and aortic root calcification. Pulmonic valve not well visualized. Normal tricuspid valve structure. IVC is normal in size with physiological collapse. A color flow and spectral Doppler study was performed and revealed: Trace aortic regurgitation. Mild mitral regurgitation. Mitral diastolic velocities suggest mild left ventricular diastolic dysfunction (Grade I). Trace tricuspid regurgitation. Tricuspid systolic velocities suggests peak right ventricular systolic pressure of 11 mmHg. Trace pulmonic regurgitation present.
--- NOTE | 2019-04-24 14:06 | Pulmonology Progress Note ---
Assessment/Plan Assessment/Plan Pulmonary Consultation HPI Patient is an 83-year-old man with history of hypertension, hyperlipidemia, heart disease who presents with lower abdominal pain, nausea for 3 days, no aggravating or relieving factors. Denies fever, chills. Allergies: No Known Allergies Past Medical History: Hypertension, Hyperlipidemia, Heart disease All Other Systems: negative except mentioned in HPI Physical Exam Vital Signs Noted General Appearance: well appearing, alert, mild distress Head: normocephalic, atraumatic Eyes: bilateral eye PERRL, bilateral eye EOMI ENT: uvula midline, moist mucus membranes Neck: supple, thyroid normal, supple/symm/no masses Respiratory: lungs clear, no respiratory distress, no retraction, no accessory muscle use Cardiovascular: normal peripheral pulses, regular rate, rhythm, HS1/HS2 normal , no murmur Gastrointestinal: no guarding, no rebound, tenderness - moderate in right groin hernia, could not be reduced Musculoskeletal: normal inspection Neurologic: alert, oriented x3, no focal signs Skin: no rash, warm/dry Impression: Small bowel obstruction Right groin hernia, Incarcerated Possible pneumonia Acute kidney injury Leukocytosis Dehydration Elevated Troponin Plan Surgical Consultation IVF AntibioticsZosyn given Lactic acid reduced Trend Labs CHROMOSOMAL DISORDERS COUNSELOR medications PPX Cardiology Consultation O2 PRN Laboratory Tests noted Test 04/22/19 19:25 04/22/19 21:00 White Blood Count 12.3 K/UL (4.8-10.8) H Red Blood Count 5.93 M/UL (4.70-6.10) Hemoglobin 16.3 G/DL (14.2-18.0) Hematocrit 51.5 % (42.0-52.0) Mean Corpuscular Volume 87 FL (80-99) Mean Corpuscular Hemoglobin 27.5 PG (27.0-31.0) Mean Corpuscular Hemoglobin Concent 31.7 G/DL (32.0-36.0) L Red Cell Distribution Width 12.6 % (11.6-14.8) Platelet Count 247 K/UL (150-450) Mean Platelet Volume 7.9 FL (6.5-10.1) Neutrophils (%) (Auto) 85.1 % (45.0-75.0) H Lymphocytes (%) (Auto) 10.2 % (20.0-45.0) L Monocytes (%) (Auto) 4.6 % (1.0-10.0) Eosinophils (%) (Auto) 0.1 % (0.0-3.0) Basophils (%) (Auto) 0.1 % (0.0-2.0) Prothrombin Time 12.3 SEC (9.30-11.50) H Prothrombin Time INR 1.2 (0.9-1.1) H PTT 28 SEC (23-33) Urine Color Brown Urine Appearance Slightly cloudy Urine pH 5 (4.5-8.0) Urine Specific [place] 1.020 (1.005-1.035) Urine Protein 2+ (NEGATIVE) H Urine Glucose (UA) Negative (NEGATIVE) Urine Ketones 1+ (NEGATIVE) H Urine Blood 3+ (NEGATIVE) H Urine Nitrite Negative (NEGATIVE) Urine Bilirubin 1+ (NEGATIVE) H Urine Ictotest Negative (NEGATIVE) Urine Urobilinogen 4 MG/DL (0.0-1.0) H Urine Leukocyte Esterase 1+ (NEGATIVE) H Urine RBC 10-15 /HPF (0 - 0) H Urine WBC 2-4 /HPF (0 - 0) Urine Squamous Epithelial Cells None /LPF (NONE/OCC) Urine Amorphous Sediment Many /LPF (NONE) H Urine Bacteria Few /HPF (NONE) Sodium Level 138 MMOL/L (136-145) Potassium Level 4.9 MMOL/L (3.5-5.1) Chloride Level 104 MMOL/L (98-107) Carbon Dioxide Level 21 MMOL/L (21-32) Anion Gap 13 mmol/L (5-15) Blood Urea Nitrogen 82 mg/dL (7-18) H Creatinine 4.3 MG/DL (0.55-1.30) H Estimate Glomerular Filtration Rate mL/min (>60) Glucose Level 178 MG/DL (74-106) H Lactic Acid Level 2.30 mmol/L (0.4-2.0) H 1.30 mmol/L (0.66-2.22) Calcium Level 10.1 MG/DL (8.5-10.1) Total Bilirubin 1.1 MG/DL (0.2-1.0) H Direct Bilirubin 0.4 MG/DL (0.0-0.3) H Aspartate Amino Transferase (AST) 11 U/L (15-37) L Alanine Aminotransferase (ALT) 17 U/L (12-78) Alkaline Phosphatase 56 U/L (46-116) Troponin I 0.129 ng/mL (0.000-0.056) Total Protein 8.4 G/DL (6.4-8.2) H Albumin 3.7 G/DL (3.4-5.0) Globulin 4.7 g/dL Albumin/Globulin Ratio 0.8 (1.0-2.7) L Lipase 78 U/L (73-393) EKG: NSR, rate 77, QTc 409, no acute ST elevations, normal axis CT Abdomen 1. Small bowel obstruction with a transition point in a right inguinal hernia. Small amount of fluid within the hernia sac. No pneumatosis or free air. Correlate clinically to exclude incarceration. 2. Reticular and groundglass opacities within the lower lungs which may be inflammatory or infectious. 3. Gallbladder is distended with gallstones. No CT evidence of acute cholecystitis. Subjective ROS Limited/Unobtainable: No Allergies: Coded Allergies: No Known Allergies (Unverified , 04/22/19) Objective Last 24 Hour Vital Signs Date Time Temp Pulse Resp B/P (MAP) Pulse Ox O2 Delivery O2 Flow Rate FiO2 04/24/19 12:00 Room Air 04/24/19 12:00 98.1 62 22 124/71 (88) 98 04/24/19 11:50 59 04/24/19 09:46 82 149/93 04/24/19 08:00 Room Air 04/24/19 08:00 99.3 82 21 149/93 (111) 94 04/24/19 07:57 82 04/24/19 04:00 69 04/24/19 04:00 Room Air 04/24/19 00:00 72 04/24/19 00:00 98.4 76 18 132/77 (95) 100 04/24/19 00:00 Room Air 04/23/19 20:00 Room Air 04/23/19 20:00 72 04/23/19 20:00 98.7 68 20 105/59 (74) 95 04/23/19 16:00 Room Air 04/23/19 16:00 99.5 74 20 129/96 (107) 95 04/23/19 15:30 75 Intake and Output 04/23/19 04/24/19 19:00 07:00 Intake Total 927.5 ml 835.0 ml Output Total 740 ml 1000 ml Balance 187.5 ml -165.0 ml Intake Oral 600 ml IV Total 327.5 ml 835.0 ml Output Urine Total 740 ml 1000 ml # Voids 3 3 Current Medications Medications (Trade) Dose Ordered Sig/Fay Route PRN Reason Start Time Stop Time Status Last Admin Dose Admin Acetaminophen (Tylenol) 650 mg Q4H PRN ORAL fever 04/22/19 23:00 05/22/19 22:59 Acetaminophen/ Hydrocodone Bitart ([place] 5/325) 1 tab Q6H PRN ORAL Moderate Pain (Pain Scale 4-6) 04/22/19 23:45 04/29/19 23:44 Al Hydroxide/Mg Hydroxide (Mylanta II) 30 ml Q6H PRN ORAL dyspepsia 04/22/19 23:00 05/22/19 22:59 Aspirin (ASA) 81 mg DAILY ORAL 04/23/19 09:00 05/23/19 08:59 04/24/19 09:46 Azithromycin 500 mg/Dextrose 275 ml @ 275 mls/hr Q24H IV 04/23/19 00:00 04/30/19 00:00 04/23/19 23:58 Dextrose (Dextrose 50%) 25 ml Q30M PRN IV Hypoglycemia 04/22/19 23:45 05/22/19 23:44 Dextrose (Dextrose 50%) 50 ml Q30M PRN IV Hypoglycemia 04/22/19 23:45 05/22/19 23:44 Dextrose/Sodium Chloride 1,000 ml @ 75 mls/hr [id number] IV 04/22/19 23:45 05/22/19 23:44 04/23/19 13:00 Diphenhydramine HCl (Benadryl) 25 mg Q6H PRN ORAL Itching/Pruritis 04/22/19 23:00 05/22/19 22:59 Famotidine (Pepcid I.v.) 10 mg Q24H IVP 04/23/19 09:00 05/23/19 08:59 04/23/19 09:09 Heparin Sodium (Porcine) (Heparin 5000 units/ml) 5,000 units EVERY 12 HOURS SUBQ 04/23/19 09:00 05/23/19 08:59 04/23/19 21:10 Insulin Aspart (NovoLOG) Q6HR SUBQ 04/23/19 00:00 05/23/19 00:00 04/23/19 06:07 Iopamidol (Isovue-300 100ml) 100 ml NOW PRN INJ Radiology Procedure 04/22/19 19:30 Lorazepam (Ativan 2mg/ml 1ml) 0.5 mg Q4H PRN IV For Anxiety 04/22/19 23:00 04/29/19 22:59 Magnesium Hydroxide (Mom) 30 ml HSPRN PRN ORAL Constipation 04/22/19 23:00 05/22/19 22:59 Metoprolol Tartrate (Lopressor) 25 mg Q12HR ORAL 04/24/19 09:00 05/24/19 08:59 04/24/19 09:46 Morphine Sulfate (Morphine Sulfate) 2 mg Q3H PRN IVP Severe Pain (Pain Scale 7-10) 04/23/19 12:45 04/29/19 22:59 Nitroglycerin (Ntg) 0.4 mg Q5M X 3 DOSES PRN SL Prn Chest Pain 04/22/19 23:00 05/22/19 22:59 Ondansetron HCl (Zofran) 4 mg Q6H PRN IVP Nausea & Vomiting 04/22/19 23:00 05/22/19 22:59 Piperacillin Sod/ Tazobactam Sod 3.375 gm/Sodium Chloride 110 ml @ 27.5 mls/hr EVERY 12 HOURS IVPB 04/23/19 09:00 04/30/19 08:59 04/23/19 21:09 Temazepam (Restoril) 15 mg HSPRN PRN ORAL Insomnia 04/22/19 23:00 04/29/19 22:59 Steffen Shore MD Apr 24, 2019 14:06
--- NOTE | 2019-04-24 15:30 | NUR ---
NURSE NOTES: Seen by Dr. Shore and informed him pt. had no IV access. Dr. Shore talked to pt. and agreed to start a IV line. After few minutes Dr. Shore left RN went to pt. room to start IV line and pt. said "No". Will cont. to monitor.
[2019-04-24] MEDS ORDERED: Tubing IV Secondary IV ONE (15:38)
[2019-04-24] MEDS ORDERED: NS 275ml ONE (15:38)
[2019-04-24] MEDS ORDERED: D5NS 1000ml IV ONE (15:38)
[2019-04-24 16:00] VITALS: BP 143/80
--- NOTE | 2019-04-24 19:25 | NUR ---
HAND-OFF: Report given to Lynda MCCLELLAN. Pt. remain stable.
--- NOTE | 2019-04-24 19:26 | NUR ---
NURSE NOTES: Received bedside report from VY Frost.Patient stable,A&O x 2-3 forgetful, SR on acupressurist,no c/o pain,no respiratory distress noted,pt sitting in a chair in a [address],tolerated r/air well,BS active in all quadrants,no IV access,MD notified by previous nurse,pt refused to insert new line,charge nurse aware,will continue to monitor and follow POC
[2019-04-24 20:00] VITALS: BP 138/87
--- NOTE | 2019-04-24 20:44 | Surgery Progress Note ---
Surgery Progress Note Subjective Additional Comments late entry no acute events okay to transition to oral rx ECHO noted appreciate cardiology input Objective Last 24 Hour Vital Signs Date Time Temp Pulse Resp B/P (MAP) Pulse Ox O2 Delivery O2 Flow Rate FiO2 04/24/19 16:00 Room Air 04/24/19 16:00 97.9 73 20 143/80 (101) 100 04/24/19 15:30 80 04/24/19 12:00 Room Air 04/24/19 12:00 98.1 62 22 124/71 (88) 98 04/24/19 11:50 59 04/24/19 09:46 82 149/93 04/24/19 08:00 Room Air 04/24/19 08:00 99.3 82 21 149/93 (111) 94 04/24/19 07:57 82 04/24/19 04:00 69 04/24/19 04:00 Room Air 04/24/19 00:00 72 04/24/19 00:00 98.4 76 18 132/77 (95) 100 04/24/19 00:00 Room Air I&O Intake and Output 04/23/19 04/24/19 19:00 07:00 Intake Total 927.5 ml 835.0 ml Output Total 740 ml 1000 ml Balance 187.5 ml -165.0 ml Intake Oral 600 ml IV Total 327.5 ml 835.0 ml Output Urine Total 740 ml 1000 ml # Voids 3 3 Cardiovascular: RSR Respiratory: clear Abdomen: soft, flat, non-tender, present bowel sounds Extremities: no edema, no tenderness, no cyanosis Plan Problems: (1) Incarcerated hernia Assessment & Plan: This is a 83-year-old male with incarcerated recurrent right inguinal hernia. Associated small bowel obstruction. Nausea and emesis. Leukocytosis. Lactic acidosis resolved with fluid resuscitation. Elevated troponins. At bedside I was able with patient's consent to reduce his inguinal hernia. Once reduced patient states he felt instantaneously better. Given course of 3 days and improvement with resuscitation and reduction possibility of possible bowel ischemia and non-viability but unlikely I had a long discussion with the patient and his son at the bedside regarding course and plan of care. Given his cardiac history and medical condition unless emergency will hold on surgical intervention until seen by gold prospector for work-up and evaluation. If unfortunately the bowel is nonviable and his exam worsens or clinical condition worsens we will proceed to operating room for diagnostic exploration. Do recommend hernia repair but need to stratify cardiac risk prior if able to unless nonviable bowel and requiring emergency surgery. All the possibilities were discussed with the patient and his family member at bedside. All risk benefits alternatives were discussed in detail. All interventions including urgent operative mention discussed. After doing so decision was made to continue with above care plan. regular diet d/c abx and iv meds transition to oral A.m. labs \ Thank you for allowing me to participate in patient's care (2) Leukocytosis (3) Dehydration (4) Right groin hernia (5) SBO (small bowel obstruction) (6) ANTONINO (acute kidney injury) Alex Hanna Apr 24, 2019 20:44
[2019-04-25] VITALS: BP 117/67
--- NOTE | 2019-04-25 00:15 | Progress Note ---
DATE: 04/24/2019 CARDIOLOGY PROGRESS NOTE SUBJECTIVE: The patient has less pain. No shortness of breath or chest pain. OBJECTIVE: VITAL SIGNS: Blood pressure 124/71, pulse 62, respirations 22, monitored rhythm sinus, T-max 99.3, oxygen saturation 94 to 100% on room air. LUNGS: With diminished breath sounds. No wheezing or rales. HEART: Regular rhythm and rate. Normal S1, S2 with a fourth heart sound. ABDOMEN: Soft. Mildly tender. No guarding or rebound. EXTREMITIES: No edema. LABORATORY DATA: Pending. IMPRESSION: 1. Status post hernia reduction. 2. Acute myocardial ischemia and possible non-ST elevation infarction. 3. Acute renal failure. 4. Lactic acidosis, resolved. 5. Chronic diastolic congestive heart failure. PLAN: 1. Follow up cardiac enzymes. 2. Review echocardiogram. 3. Continue hydration by IV route. 4. Off beta-kasia therapy and anti-platelet therapy. Steffen Vazquez M.D. DR: AMERICA JOB#: [id number] CC:
--- NOTE | 2019-04-25 00:16 | NUR ---
NURSE NOTES: Pt has no IV access and aware.
[2019-04-25 04:00] VITALS: BP 140/85
[2019-04-25 05:18] LABS: BASOPHILS % (AUTO) 0.7 % (0.0-2.0); EOSINOPHILS % (AUTO) 1.9 % (0.0-3.0); HEMOGLOBIN 15.8 G/DL (14.2-18.0); LYMPHOCYTES % (AUTO) 22.5 % (20.0-45.0); MEAN CORPUSCULAR VOLUME 89 FL (80-99); MONOCYTES % (AUTO) 8.6 % (1.0-10.0); NEUTROPHILS % (AUTO) 66.3 % (45.0-75.0); PLATELET COUNT 234 K/UL (150-450); RED BLOOD COUNT 5.62 M/UL (4.70-6.10); WHITE BLOOD COUNT 7.8 K/UL (4.8-10.8)
--- NOTE | 2019-04-25 05:30 | NUR ---
NURSE NOTES: BS 68,pt ate sandwich and 240ml orange juice,will recheck in 15 min
[2019-04-25 05:47] LABS: ALANINE AMINOTRANSFERASE 16 U/L (12-78); ALBUMIN 3.5 G/DL (3.4-5.0); ALBUMIN/GLOBULIN RATIO 0.9 (1.0-2.7); ALKALINE PHOSPHATASE 53 U/L (46-116); ANION GAP 12 mmol/L (5-15); ASPARTATE AMINO TRANSFERASE 27 U/L (15-37); BILIRUBIN,TOTAL 0.9 MG/DL (0.2-1.0); BLOOD UREA NITROGEN 35 mg/dL (7-18); CALCIUM 9.5 MG/DL (8.5-10.1); CARBON DIOXIDE 20 MMOL/L (21-32); CHLORIDE 108 MMOL/L (98-107); CREATININE 0.9 MG/DL (0.55-1.30); POTASSIUM 5.1 MMOL/L (3.5-5.1); SODIUM 140 MMOL/L (136-145)
[2019-04-25] MEDS: NovoLOG Insulin Flexpen SUBQ SCH ×3 (06:00→12:00)
--- NOTE | 2019-04-25 06:00 | NUR ---
NURSE NOTES: Recheck BS 118,patient stable,sitting in a chair outside of the room.
--- NOTE | 2019-04-25 06:15 | NUR ---
NURSE NOTES: received a phone call from annalee Bermudez regarding pt's Troponin,it's trending up 0.486, and next shift nurse will notify,charge nurse aware.
--- NOTE | 2019-04-25 07:00 | NUR ---
HAND-OFF: Report given to VY Frost.Patient stable,sitting on a chair.
--- NOTE | 2019-04-25 07:10 | NUR ---
NURSE NOTES: Received bedside report from Lynda MCCLELLAN. Pt. OOB up sitting in the chair. No sign of distress. Denies pain at present. Pt. still no IV access MD aware. Troponin trending up. Will notify Dr. Vazquez. Pt. asymptomatic. SR previous shift. Will cont. to monitor.
--- NOTE | 2019-04-25 07:44 | NUR ---
NURSE NOTES: Called Dr. Vazquez left message regarding pt. Troponin level 0.486 and trending up. Also notify him pt. refused for RN to start IV line since yesterday. Awaiting for response.
[2019-04-25 08:00] VITALS: BP 126/76
--- NOTE | 2019-04-25 08:23 | General Progress Note ---
Assessment/Plan Assessment/Plan: Impression: Small bowel obstruction s/p reduction Right groin hernia, Incarcerated Possible pneumonia Acute kidney injury Leukocytosis Dehydration Elevated Troponin PLAN surgical and cardiology follow up await clearance likely elective hernia repair monitor pain monitor for change supportive care for now impression, plan, and exam edited and reviewed in detail care discussed with RN Subjective Allergies: Coded Allergies: No Known Allergies (Unverified , 04/22/19) Subjective care noted and reviewed surgery appreciated cards noted Objective Last 24 Hour Vital Signs Date Time Temp Pulse Resp B/P (MAP) Pulse Ox O2 Delivery O2 Flow Rate FiO2 04/25/19 08:00 Room Air 04/25/19 08:00 97.5 83 18 126/76 (93) 97 04/25/19 04:00 98.1 75 18 140/85 (103) 96 04/25/19 04:00 Room Air 04/25/19 03:26 82 04/25/19 00:00 97.8 66 18 117/67 (84) 96 04/25/19 00:00 Room Air 04/24/19 23:31 74 04/24/19 21:38 69 138/74 04/24/19 20:00 Room Air 04/24/19 20:00 98.2 79 18 138/87 (104) 100 04/24/19 19:45 78 04/24/19 16:00 Room Air 04/24/19 16:00 97.9 73 20 143/80 (101) 100 04/24/19 15:30 80 04/24/19 12:00 Room Air 04/24/19 12:00 98.1 62 22 124/71 (88) 98 04/24/19 11:50 59 04/24/19 09:46 82 149/93 Intake and Output 04/24/19 04/25/19 18:59 06:59 Intake Total 600 ml Output Total 480 ml Balance 120 ml Intake Oral 600 ml Output Urine Total 480 ml # Voids 5 # Bowel Movements 1 Laboratory Tests 04/25/19 03:35: White Blood Count 7.8, Red Blood Count 5.62, Hemoglobin 15.8, Hematocrit 50.0, Mean Corpuscular Volume 89, Mean Corpuscular Hemoglobin 28.1, Mean Corpuscular Hemoglobin Concent 31.6L, Red Cell Distribution Width 13.0, Platelet Count 234, Mean Platelet Volume 7.0, Neutrophils (%) (Auto) 66.3, Lymphocytes (%) (Auto) 22.5, Monocytes (%) (Auto) 8.6, Eosinophils (%) (Auto) 1.9, Basophils (%) (Auto ) 0.7, Sodium Level 140, Potassium Level 5.1, Chloride Level 108H, Carbon Dioxide Level 20L, Anion Gap 12, Blood Urea Nitrogen 35H, Creatinine 0.9, Estimat Glomerular Filtration Rate , Glucose Level 66L, Calcium Level 9.5, Total Bilirubin 0.9, Aspartate Amino Transf (AST/SGOT) 27, Alanine Aminotransferase (ALT/SGPT) 16, Alkaline Phosphatase 53, Troponin I 0.486H, Pro- B-Type Natriuretic Peptide 2448H, Total Protein 7.4, Albumin 3.5, Globulin 3.9, Albumin/Globulin Ratio 0.9L, Thyroid Stimulating Hormone (TSH) 0.297L Height (Feet): 5 Height (Inches): 7.00 Weight (Pounds): 167 Objective WDWN NAD clear breath sounds bilaterally without rhonchi or wheeze [id number] without MRG NABS nontender no HSM no CCE nonfocal Timothy Gan MD Apr 25, 2019 08:23
[2019-04-25] MEDS: Heparin 5000 units/ml inj SUBQ SCH (09:00)
[2019-04-25] MEDS: Aspirin Baby 81mg ORAL SCH (09:00)
[2019-04-25] MEDS: Metoprolol 25mg tab ORAL SCH (09:00)
--- NOTE | 2019-04-25 11:11 | NUR ---
NURSE NOTES: Seen by Dr. Vazquez and informed him family told CN they are coming to pick him up and get ready for discharge. Dr. Vazquez told RN if family wanted to take him home family need to sign him for AMA. Gave order to the nurse for MD consult Dr. Cannon.
--- NOTE | 2019-04-25 11:23 | NUR ---
RADIOLOGY DEPT., ABDOMEN X-RAY ATTEMPTED. PT REFUSES TO COOPERATE (ASSIGNED CVA WITNESS EVENT) THAN PT BEGIN LEAVING MENG TOWARDS 2 EAST ASKING STAFF TO EXIT FACILITY.LUISITO
[2019-04-25 12:00] VITALS: BP 103/74
--- NOTE | 2019-04-25 12:21 | NUR ---
SPR[employer] IRRIGATION EQUIPMENT MECHANICEVAPORATOR OPERATOR SI; ABDOMINAL PAIN,ELEVATED T. 97.5 HR 83 RR 18 B/P 126/76 RA 97% BUN 35 TROP 0.486 BNP 2448 IS; IVF NS @75ML/HR HEPARIN SUBC ASA PO STEP DOWN STATUS
--- NOTE | 2019-04-25 13:20 | NUR ---
NURSE NOTES: Pt. son Thong and pick-up the pt. leaving AMA. No sign of distress. Per family pt. is always wanting leave every time he is in the hospital. Any hospital he go he wanted to leave. CN made aware Dr. Vazquez and Dr. Gan.
--- NOTE | 2019-04-25 13:21 | NUR ---
AMA: SEE AMA FORM.
--- NOTE | 2019-04-25 13:43 | Discharge Summary ---
Discharge Summary Discharge Summary _ DATE OF ADMISSION: 04/22/2019 DATE OF DISCHARGE: 04/25/2019 Patient left AGAINST MEDICAL ADVICE REASON FOR ADMISSION: 83 years old male with past medical history of hypertension, hyperlipidemia, congestive heart failure, presented to ED with complaints of lower abdominal pain for 3 days. Pain described as sharp, revealed initial hypotension. . Laboratory work-up revealed leukocytosis with WBC 12.3, stable hemoglobin and hematocrit. Urinalysis revealed +2 protein, +1 ketones, +3 blood, no pyuria, no bacteria. Stable electrolytes. BUN 82, creatinine 4.3. Glucose 178. Lactic acid 2.3. Total bilirubin 1.1, direct bilirubin 0.4. AST 11, ALT 17. Lipase 78. Troponin - 0.129, EKG revealed sinus rhythm, no acute ischemic changes Albumin 3.7 Chest x-ray revealed bibasilar opacity, right greater than left , likely inflammatory or infectious process. CT of the abdomen and pelvis demonstrated small bowel obstruction with a transition point in the right inguinal hernia. No pneumatosis or free air. Reticular and ground-glass opacities within the lower lungs , may be inflammatory or infectious. Gallbladder distended with gallstones. No CT evidence of acute cholecystitis. Patient was resuscitated . Patient started on empiric antibiotic/Zosyn. ER physician attempted to reduce hernia , but patient was unable to tolerate. General surgery consult was requested. Surgeon seen and evaluated patient in emergency department . Patient consented f to reduce inguinal hernia. Once reduced , patient reported that he felt instantaneously better. Per surgeon, given course of 3 days of pain and improvement with resuscitation and reduction , possibility of bowel ischemia and non-viability was unlikely . Patient subsequently admitted to direct observational unit. CONSULTANTS: wrist closer surgery Dr. Hanna [facility]SE: Patient admitted to direct observational unit. Patient started on the IV fluids and empiric antibiotics. Surgeon closely follow. Patient initially kept n.p.o. GI prophylaxis provided. Supplemental oxygen titrated to keep pulse oximetry above 92%. Pulmonary toilet with via handheld nebulizing therapy was on board as needed. Patient slowly started on diet as tolerated. Leukocytosis resolved. Lactic acid trended down to normal. Pain management was addressed , and pain was controlled. Troponin remained elevated with trend up. Securities Vault Supervisor followed. Echocardiogram demonstrated preserved ejection fraction of 55 to 60%. Normal left ventricular chamber size, systolic function and wall motion except possible hypokinesis of inferolateral wall. Borderline left ventricular hypertrophy. No evidence of pericardial effusion. Right ventricular systolic pressure of 11. Per wrist closer , patient had acute myocardial ischemia and possible non- STEMI. Patient started on antiplatelet therapy with aspirin and beta-kasia. Patient was encouraged compliance with medication regimen. Initial hypotension resolved. Blood pressure was managed with beta-kasia. Nitroglycerin was on board as needed. Blood sugar was managed with sliding scale of insulin. Per surgeon, given cardiac history and medical condition , surgeon recommended hold on surgical intervention until cleared by wrist closer after work-up and evaluation. Surgeon did recommend hernia repair , but it needs to be done after stratifying cardiac risk prior to surgery , unless nonviable bowel and patient will require emergency surgery. Per wrist closer, consideration for hernia repair surgically will require noninvasive assessment of coronary flow reserve. Patient was unable to consent at this time. Outpatient myocardial perfusion scan was recommended with a risk assessment to be made at that time. Per wrist closer, troponin levels were rising, and patient was not stable for discharge. DVT prophylaxis provided. Patient was on empiric antibiotic for possible pneumonia. Renal parameters and electrolytes were closely monitored, and electrolytes corrected as needed. Nephrotoxins were avoided. Prior to signing AGAINST MEDICAL ADVICE BUN from 82 down to 35 and creatinine from 4.3 down to 0.9. Acute kidney injury resolved. On 04/25 late morning patient decided to sign AGAINST MEDICAL ADVICE. The risks and consequences of signing AGAINST MEDICAL ADVICE were discussed with patient in detail. Patient verbalized understanding, nevertheless signed AMA form and left. The risks and consequences of signing AGAINST MEDICAL ADVICE were discussed with patient in detail. Patient verbalized understanding, nevertheless signed AMA form and left. FINAL DIAGNOSES: Right inguinal incarcerated hernia , status post reduction Small bowel obstruction - resolved with reduction of incarcerated hernia Acute kidney injury /acute renal failure -resolved Lactic acidosis- resolved Dehydration Leukocytosis- resolved Possible pneumonia Elevated troponin Acute myocardial ischemia Possible NSTEMI Chronic diastolic congestive heart failure I have been assigned to dictate discharge summary for this account. I was not involved in the patient's management. Dania Kruger NP Apr 25, 2019 13:43
--- NOTE | 2019-04-26 02:30 | Progress Note ---
DATE: 04/25/2019 CARDIOLOGY PROGRESS NOTE SUBJECTIVE: The patient was seen and evaluated with nursing staff. He is confused. He has refused medications for the last day. Nursing staff has notified family members to assist with orienting the patient for better confine and has not been available yet to visit. Monitored rhythm sinus with atrial ectopics. PHYSICAL EXAMINATION: VITAL SIGNS: Blood pressure 126/76, heart rate 83, respiratory rate 18, and afebrile. LUNGS: Clear. CARDIAC: Regular. Normal S1, S2 with a fourth heart sound. ABDOMEN: Soft. The hernia site is reduced. IMPRESSION: 1. Status post reduction of inguinal incarcerated hernia. 2. Acute myocardial ischemia and possible que-LI-yltynrpoh myocardial infarction. 3. Hypertension, resolved. 4. Small bowel obstruction, recovering. 5. Acute kidney injury due to hypovolemia and dehydration. PLAN: 1. Discontinue IV fluids. 2. Encourage compliance with beta-kasia therapy and anti-platelet drugs. 3. Consideration for hernia repair surgically will require noninvasive assessment of coronary flow reserve. The patient is unable to consent at this time. An outpatient myocardial perfusion scan can follow and risk assessment will be made at that time. The patient's troponin levels are rising at this time until he is not stable for discharge. Steffen Vazquez M.D. : MARCELA JOB#: [id number] CC:
== END 2019-04-25 13:20 | disposition left against medical advice (07) | DRG 280 ==
LOC: EDBD 19:12 → EMR 19:38 → 2W 21:24 → EDBEDREQ 22:11 → 2W 04-24 07:43
DX: I21.4 Non-ST elevation (NSTEMI) myocardial infarction (principal); J18.9 Pneumonia, unspecified organism; K40.31 Unilateral inguinal hernia, with obstruction, without gangrene, recurrent; N17.9 Acute kidney failure, unspecified; E87.2 Acidosis; I50.32 Chronic diastolic (congestive) heart failure; K40.30 Unilateral inguinal hernia, with obstruction, without gangrene, not specified as recurrent; I11.0 Hypertensive heart disease with heart failure; E86.0 Dehydration; I51.3 Intracardiac thrombosis, not elsewhere classified; I25.10 Atherosclerotic heart disease of native coronary artery without angina pectoris; Z95.5 Presence of coronary angioplasty implant and graft; E78.5 Hyperlipidemia, unspecified
CPT/HCPCS: 36415; 71045; 74176; 80053; 80061; 81003; 82248; 82962; 83036; 83605; 83690; 83880; 84443; 84484; 85025; 85610; 85730; 86850; 86900; 86901; 93005; 93306; 96361; 96365; 96375; 99285; J1815; J2405